=== PATIENT | female | born 1965 | race Caucasian/White ===

== ENCOUNTER 2016-03-10 16:04 | Emergency (ER) | payer OTHER ==
--- NOTE | 2016-03-10 16:08 | EDPHY ---
H & P Time Seen by Provider: 03/10/16 16:07 HPI/ROS: CHIEF COMPLAINT: Palpitations HISTORY OF PRESENT ILLNESS: The patient presents the emergency department after an episode of self-limited palpitations. They occurred while at rest while she was watching a football game. She reports an irregular heartbeat with mild dyspnea. The patient reports her symptoms resolved spontaneously. She has no prior history of the symptoms. She currently denies chest pain or pleuritic chest pain. She denies asymmetric calf pain or swelling. The patient does have a history of anorexia. The patient does report moderate alcohol consumption drinking approximately 1 bottle of wine on a daily basis. Patient takes no regular medications. She denies additional complaints. REVIEW OF SYSTEMS: A comprehensive 10 point review of systems is otherwise negative aside from elements mentioned in the history of present illness. Source: Patient Exam Limitations: No limitations - Medical/Surgical History PMH: Past medical history: Anorexia - Family History Significant Family History: No pertinent family hx - Social History Smoking Status: Never smoked - Physical Exam Exam: General Appearance: Alert, no distress Eyes: Pupils equal and round no pallor or injection ENT, Mouth: Mucous membranes moist Respiratory: There are no retractions, lungs are clear to auscultation Cardiovascular: Regular rate and rhythm Gastrointestinal: Abdomen is soft and nontender, no masses, bowel sounds normal Neurological: A&O, normal motor function, normal sensory exam, normal cranial nerves Skin: Warm and dry, no rashes Musculoskeletal: Neck is supple nontender Extremities: symmetrical, full range of motion Constitutional: Initial Vital Signs Temperature (C) 36.7 C 03/10/16 16:18 Heart Rate 92 03/10/16 16:18 Respiratory Rate 12 03/10/16 16:18 Blood Pressure 142/90 H 03/10/16 16:18 O2 Sat (%) 98 03/10/16 16:18 O2 Delivery Mode Room Air Allergies/Adverse Reactions: No Known Allergies Allergy (Unverified 03/10/16 16:21) Home Medications: Medication Instructions Recorded NK [No Known Home Meds] 03/10/16 Medical Decision Making - Diagnostics EKG Interpretation: EKG: Complete interpretation has been separately recorded in the [employer] archive. Summary impression: Sinus rhythm, no arrhythmia ED Course/Re-evaluation: Patient presents to the ED after an episode of resolved palpitations. I reviewed the 12 lead done by EMS and see no obvious arrhythmia or premature beats. The patient was placed on a cardiac technician in the ED today. There was no ectopy observed in the emergency department. Her EKG is normal in the ED. Her electrolytes are within normal limits. The patient was observed in the ED for 2 hours without recurrence arrhythmia. At this point time, I do feel she can be discharged home as she has remained asymptomatic. I have asked her to return to the ED immediately in the event of a recurrent arrhythmias so repeat her EKG while she is symptomatic. The patient has been referred to our on-call ice plant operator at the [facility] if she continues to experience episodic palpitations. The patient has nothing to suggest acute coronary syndrome or pulmonary embolism based upon her presentation today. Differential Diagnosis: Differential diagnosis considered includes SVT, atrial fibrillation, PVCs, metabolic abnormality - Data Points Laboratory Results: Laboratory Results 03/10/16 16:00 03/10/16 16:00 03/10/16 16:00 WBC 6.68 10^3/uL (3.80-9.50) RBC 4.38 10^6/uL (4.18-5.33) Hgb 14.5 g/dL (12.6-16.3) Hct 41.2 % (38.0-47.0) MCV 94.1 fL (81.5-99.8) MCH 33.1 pg (27.9-34.1) MCHC 35.2 g/dL (32.4-36.7) RDW 12.7 % (11.5-15.2) Plt Count 232 10^3/uL (150-400) MPV 10.3 fL (8.7-11.7) Neut % (Auto) 56.4 % (39.3-74.2) Lymph % (Auto) 37.1 % (15.0-45.0) [place] % (Auto) 5.5 % (4.5-13.0) Eos % (Auto) 0.3 L % (0.6-7.6) Baso % (Auto) 0.6 % (0.3-1.7) Nucleat RBC Rel Count 0.0 % (0.0-0.2) Absolute Neuts (auto) 3.76 10^3/uL (1.70-6.50) Absolute Lymphs (auto) 2.48 10^3/uL (1.00-3.00) Absolute Monos (auto) 0.37 10^3/uL (0.30-0.80) Absolute Eos (auto) 0.02 L 10^3/uL (0.03-0.40) Absolute Basos (auto) 0.04 10^3/uL (0.02-0.10) Absolute Nucleated RBC 0.00 10^3/uL (0-0.01) Immature Gran % 0.1 % (0.0-1.1) Immature Gran # 0.01 10^3/uL (0.00-0.10) Sodium 141 mEq/L (134-144) Potassium 4.0 mEq/L (3.5-5.2) Chloride 105 mEq/L (97-110) Carbon Dioxide 22 mEq/l (22-31) Anion Gap 14 mEq/L (8-16) BUN 13 mg/dL (7-23) Creatinine 0.7 mg/dL (0.6-1.0) Estimated GFR > 60 Glucose 87 mg/dL (70-100) Calcium 9.5 mg/dL (8.5-10.4) Departure - Departure Disposition: Home, Routine, Self-Care Clinical Impression: Palpitations Condition: Good Instructions: Palpitations (ED) Additional Instructions: 1. All testing in the emergency department today demonstrates no acute abnormalities. I see no obvious arrhythmia on the EKG or monitoring we have performed today. 2. Please return to the ED for recurrent arrhythmia, chest pain, shortness of breath or other concerns. 3. If you continue to experiencing episodic palpitations I do recommend following up with Cardiology for further testing. You have been referred to the ice plant operator at the [facility] for consideration of a Holter monitor and additional workup. Referrals: Eleni Calles MD [Primary Care Provider] - As per Instructions Preston Matias MD [Medical Doctor] - As per Instructions
[2016-03-10 16:21] VITALS: PULSE 92; TEMP 98.1
[2016-03-10 16:21] LABS: % IMMATURE GRANULYOCYTES 0.1 % (0.0-1.1); ABSOLUTE IMMATURE GRANULOCYTES 0.01 10^3/uL (0.00-0.10); ADD DIFF? NO; ADD MORPH? NO; ADD SCAN? NO; ATYPICAL LYMPHOCYTE FLAG 10 (0-99); FRAGMENT RBC FLAG 0 (0-99); HEMATOCRIT 41.2 % (38.0-47.0); HEMOGLOBIN 14.5 g/dL (12.6-16.3); LEFT SHIFT FLG 0 (0-99); LIPEMIA HEMOLYSIS FLAG 90 (0-99); MEAN CELL HEMOGLOBIN 33.1 pg (27.9-34.1); MEAN CELL HEMOGLOBIN CONCENTR. 35.2 g/dL (32.4-36.7); MEAN CELL VOLUME 94.1 fL (81.5-99.8); MEAN PLATELET VOLUME 10.3 fL (8.7-11.7); PLATELET CLUMPS FLAG 10 (0-99); PLATELET COUNT 232 10^3/uL (150-400); RED BLOOD CELL COUNT 4.38 10^6/uL (4.18-5.33); RED CELL DISTRIBUTION WIDTH 12.7 % (11.5-15.2)
[2016-03-10 16:32] LABS: ANION GAP 14 mEq/L (8-16); CALCIUM 9.5 mg/dL (8.5-10.4); CARBON DIOXIDE 22 mEq/l (22-31); CHLORIDE 105 mEq/L (97-110); CREATININE 0.7 mg/dL (0.6-1.0); GLOMERULAR FILTRATION RATE > 60; GLUCOSE 87 mg/dL (70-100); SODIUM 141 mEq/L (134-144)
--- NOTE | 2016-03-10 17:11 | CPEKG ---
Heart Rate: 92 RR Interval: 652 P-R Interval: 148 QRSD Interval: 94 QT Interval: 368 QTC Interval: 456 P [place]: 81 QRS [place]: 62 T Wave [place]: 51 EKG Severity - BORDERLINE ECG - EKG Impression: SINUS RHYTHM EKG Impression: BORDERLINE T ABNORMALITIES, ANTERIOR LEADS Electronically Signed By: Abhay Chavez 10-Mar-2016 23:22:44
[2016-03-10 17:20] VITALS: BP 128/78; RESP 16; O2SAT 96
== END 2016-03-10 17:27 | disposition home or self-care (01) ==
LOC: EDUNIT#
DX: R00.2 Palpitations (principal)

== ENCOUNTER → 2016-04-23 | Outpatient (CLI) | payer OTHER | LOC: BMCIMAGING 14:27 | DX: Z12.31 Encounter for screening mammogram for malignant neoplasm of breast (principal); Z80.3 Family history of malignant neoplasm of breast | CPT/HCPCS: G0202 ==

== ENCOUNTER → 2016-07-16 | Outpatient (CLI) | payer OTHER | LOC: BMCIMAGING 13:48 | PROVIDERS: ATTEND Family Medicine | DX: Z13.820 Encounter for screening for osteoporosis (principal); M85.80 Other specified disorders of bone density and structure, unspecified site ==

== ENCOUNTER → 2016-07-30 | Outpatient (CLI) | payer OTHER | LOC: BMCIMAGING 12:03 | PROVIDERS: ATTEND Internal Medicine Rheumatology | DX: M79.642 Pain in left hand (principal); M79.641 Pain in right hand ==

== ENCOUNTER → 2017-05-27 | Outpatient (CLI) | payer OTHER | LOC: BMCIMAGING 13:29 | PROVIDERS: ATTEND Family Medicine | DX: Z12.31 Encounter for screening mammogram for malignant neoplasm of breast (principal); Z80.3 Family history of malignant neoplasm of breast ==

== ENCOUNTER → 2018-03-11 | Outpatient (CLI) | payer OTHER | END | disposition home or self-care (01) | LOC: BMCIMAGING 15:04 | PROVIDERS: ATTEND Family Medicine | DX: R05 Cough (principal) ==

== ENCOUNTER → 2018-03-17 | Outpatient (CLI) | payer OTHER | LOC: BMCIMAGING 14:27 | PROVIDERS: ATTEND Physician Assistant | DX: S22.32XA Fracture of one rib, left side, initial encounter for closed fracture (principal); J40 Bronchitis, not specified as acute or chronic ==

== ENCOUNTER → 2018-04-14 | Outpatient (CLI) | payer OTHER | LOC: BMCIMAGING 15:33 | PROVIDERS: ATTEND Internal Medicine Rheumatology | DX: M24.841 Other specific joint derangements of right hand, not elsewhere classified (principal); M24.842 Other specific joint derangements of left hand, not elsewhere classified ==

== ENCOUNTER → 2018-06-09 | Outpatient (CLI) | payer OTHER | LOC: BMCIMAGING 13:36 | PROVIDERS: ATTEND Family Medicine | DX: Z13.820 Encounter for screening for osteoporosis (principal); Z12.31 Encounter for screening mammogram for malignant neoplasm of breast; M85.88 Other specified disorders of bone density and structure, other site ==